=== PATIENT | female | born 1970 | race Caucasian/White ===

== ENCOUNTER 2017-06-27 20:51 | Emergency (ER) | payer BC ==
[~2017-06-27] VITALS: Ht 154.9 cm; Wt 78.7 kg
[~2017-06-27 20:51] MED LIST: BACTRIM,SEPT1 TABLET PO; KEFLEX500 MG PO
[2017-06-27] MEDS ORDERED: DOXYCYCLINE MO100 MG PO (22:30)
[2017-06-27] MEDS ORDERED: MOTRIN600 MG PO (22:50)
[2017-06-27 22:56] VITALS: BP 152/98
== END 2017-06-27 22:57 | disposition home or self-care (01) ==
LOC: EME 20:51
PROC: 0H91XZZ Drainage of Face Skin, External Approach (ICD-10-PCS; principal; 2017-06-27)
DX: L02.01 Cutaneous abscess of face (principal); Z87.891 Personal history of nicotine dependence; Z86.14 Personal history of Methicillin resistant Staphylococcus aureus infection
CPT/HCPCS: 99281; 99284; J7050